=== PATIENT | female | born 1965 | race Two or more races ===

== ENCOUNTER 2024-11-16 19:24 | Emergency (ER) | payer BC, SELFPAY ==
[2024-11-16 19:24] VITALS: BMI 17.9
--- NOTE | 2024-11-16 20:08 | EDNOTE_ITS ---
ED Abdominal Pain RME/HPI General Chief Complaint: Abdominal Pain Stated complaint: ABD PAIN/BLOODY STOOLS Time seen by provider: 11/16/24 20:08 Arrival date/time: 11/16/24 19:24 RME / HPI RME / HPI narrative: Dr. Taylor?s Main ED Evaluation: 59yo female presenting with grossly blood stools x 1 week. Patient has generalized diffuse lower abdominal pain, and also complains of generalized weakness/fatigue. No fever or chills. Reports previous history of similar symptoms and underwent colonoscopy and is s/p polypectomy x2. PMH colonic polyps, vertigo. No DM, HTN, or heart disease. PSH appendectomy. Social history includes occasional alcohol and tobacco use. NKA. Related Data Home Medications ?Medication ?Instructions ?Recorded ?Confirmed No Known Home Medications 01/04/2212/23 Allergies Allergy/AdvReac Type Severity Reaction Status Date / Time bee venom protein (honey bee) Allergy Severe Swelling Verified 11/16/24 19:26 of Lip/Tongue/Throat Review of Systems Review of Systems Systems Reviewed: All systems reviewed, normal except as documented Past Medical History Past Medical History NEUROLOGIC: Negative Neurological Disorders or Seizures CARDIAC: Positive Cardiac Disorders and Hypercholesterolemia (no meds); Negative Congestive Heart Failure RESPIRATORY: Negative Chronic Obstructive Pulmonary Disease (COPD) GASTROINTESTINAL: Negative Gastrointestinal Disorders GENITOURINARY: Negative Genitourinary Disorders or Renal Disease MUSCULOSKELETAL: Negative Musculoskeletal Disorders ENDOCRINE: Negative Endocrine Disorders, Diabetes Mellitus Type 1 or Diabetes Mellitus Type 2 HEMATOLOGIC: Negative Blood Disorders OTHER HISTORY: Positive Chicken Pox and Cancer; Negative Autoimmune Disease, Blood Transfusions or Anesthesia Reactions Surgical History SURGICAL: Positive Ear Surgery (left ear) and Tubal Ligation (ovarian cyst removal) Social History SMOKING STATUS: Former smoker ED Exam Narrative Physical exam: GENERAL APPEARANCE: alert and oriented x 4, chronically-ill appearing, in [id number] distress, complaining of generalized abdominal pain VITALS: All vitals were reviewed and the pulse ox is 98% on room air, which is normal according to my interpretation. HEENT: Normocephalic, atraumatic; pupils equal, round, reactive to light; EOMI; mucous membranes pink, moist; oropharynx clear NECK: Supple LUNGS: CTABL; no wheezes, no rales, no rhonchi HEART: Mildly tachycardic, regular rhythm; normal S1, S2; no murmurs ABDOMEN: non distended; normal BS; soft, generalized tenderness with diffuse guarding BACK: no CVA tenderness EXTREMITIES: atraumatic; no edema NEUROLOGIC: awake; alert and oriented x4; cranial nerves II-XII grossly intact; no focal sensory or motor deficits PSYCHIATRIC: appropriate mood and affect SKIN: warm, dry, normal color; no rashes Course Quality Measures none Orders Category Date Time Status CBC Stat Lab 11/16/24 20:42 Completed Comprehensive Metabolic Panel Stat Lab 11/16/24 20:42 Completed Lipase Stat Lab 11/16/24 20:42 Completed Magnesium Stat Lab 11/16/24 20:42 Completed Partial Thromboplastin Time Stat Lab 11/16/24 20:42 Completed Prothrombin Time with INR Stat Lab 11/16/24 20:42 Completed Morphine Inj Med 11/16/24 20:18 Discontinued 4 mg IVP X1 ONE Ondansetron Inj [Zofran Inj] Med 11/16/24 20:18 Discontinued 4 mg IVP X1 ONE Sodium Chloride 0.9% 1000 ml [Ns] 1,000 ml Med 11/16/24 20:19 Discontinued IV 999 mls/hr Vital Signs Vital signs: Vital Signs Temperature 97.8 F 11/16/24 20:12 Pulse Rate 88 11/16/24 20:12 Respiratory Rate 18 11/16/24 20:12 Blood Pressure 139/83 H 11/16/24 20:12 Pulse Oximetry (%) 98 11/16/24 20:12 Oxygen Delivery Method Room Air 11/16/24 20:12 Abdominal Pain MDM MDM Narrative MDM Narrative:: Scribe Attestation: 11/16/24 - Pura Matthew am scribing for and in the presence of Dr. Taylor. 59yo female presenting with grossly blood stools x 1 week. Patient has generalized diffuse lower abdominal pain, and also complains of generalized weakness/fatigue. No fever or chills. Please see PE findings. Diagnostic tests were ordered. I was notified by the nurse the patient eloped prior to diagnostic tests being completed. Patient data External records reviewed:: [facility] previous records (Per chart review, patient has no previous ED visits or admissions to this facility.) Clinical information provided by:: patient Social determinants that could affect healthcare access:: none Patient has the following chronic illnesses:: none How is presenting disease/condition affected by chronic disease/condition?: no chronic disease Evaluation data The following diagnostics were reviewed and interpreted by me:: lab results Lab and/or radiology exams considered but not ordered:: none Interpretation Summary: See MDM. Medications / Prescriptions Medications or Prescriptions considered but not ordered:: none Medication administrations:: Medication Administration History Discontinued Medications Sodium Chloride (Ns) 1,000 mls @ 999 mls/hr IV .Q1H1M ONE Stop: 11/16/24 21:19 Morphine Sulfate (Morphine Sulf Inj 10 Mg/Ml Vial) 4 mg IVP X1 ONE Stop: 11/16/24 20:19 Ondansetron HCl (Ondansetron Inj 2 Mg/Ml Inj 2 Ml) 4 mg IVP X1 ONE; Protocol Stop: 11/16/24 20:19 Meds were ordered, but not given due to the patient eloping. Consultations Consultation(s) initiated? (list below): No Diagnosis Differential diagnosis abdominal pain: gastroenteritis and other (GI bleed, hemorrhoids) Most likely diagnosis given after review of the tests above:: elopement Admission Indicated Admission indicated?: not indicated Admission Request Was there a request for admission?: No Disposition Plan Disposition Plan: other (specify) (Elopement) Discharge Plan Plan Patient Disposition: Elopement Prescriptions/Referrals Prescriptions/Med Rec: No Action No Known Home Medications Referrals: Niyah Vu MD [Primary Care Provider] - In 1 week Problem List Clinical Impression: Eloped from emergency department, Abdominal pain Patient/Caregiver Discharge Instructions Print Language: Yakut
[2024-11-16 20:12] VITALS: BP 139/83; PULSE 88; RESP 18; TEMP 36.6; O2SAT 98
[2024-11-16 20:54] LABS: Basophils # (Auto) 0.0 Thou/mm3 (0.0-0.2); Basophils % (Auto) 0 % (0-2.5); Eosinophils # (Auto) 0.0 Thou/mm3 (0.0-0.5); Eosinophils % (Auto) 0 % (0-10); Hematocrit 42.9 % (36.0-46.0); Hemoglobin 15.3 g/dL (12.0-16.0); Immature Granulocytes Auto 0.05 Thou/mm3 (0.00-0.00); Lymphocytes # (Auto) 2.4 Thou/mm3 (1.0-4.8); Lymphocytes % (Auto) 26 % (10-50); Mean Corpuscular HGB Conc 35.7 g/dl (31.0-37.0); Mean Corpuscular Hemoglobin 40.2 pg (25.0-35.0); Mean Corpuscular Volume 113 fL (80-100); Monocytes # (Auto) 0.7 Thou/mm3 (0.0-0.8); Monocytes % (Auto) 8 % (0-12); Neutrophils # (Auto) 6.1 Thou/mm3 (1.8-7.7); Neutrophils % (Auto) 66 % (37-80); Nucleated Red Blood Cell # 0.00 Thou/mm3 (0.00-0.00); Nucleated Red Blood Cell % 0 /100 WBC (0); Platelet Count 171 Thou/mm3 (140-440); RDW Standard Deviation 57.0 fL (36.4-46.3); Red Blood Count 3.81 Miln/mm3 (4.00-5.20); White Blood Count 9.4 Thou/mm3 (3.6-11.0)
[2024-11-16 21:06] LABS: INR 1.0 (0.9-1.3); Partial Thromboplastin Time 26.6 Seconds (22.0-36.0); Prothrombin Time 10.7 Seconds (9.0-12.2)
[2024-11-16 21:13] LABS: Alanine Aminotransferase 19 U/L (10-49); Albumin, Serum 4.1 gm/dL (3.4-4.8); Albumin/Globulin Ratio 1.9 (1.2-2.2); Alkaline Phosphatase 102 U/L (46-116); Anion Gap 16 (7-16); Aspartate Amino Transferase 22 U/L (0-34); BUN/Creatinine Ratio 10 Ratio (12-20); Bilirubin,Total 0.7 mg/dL (0.3-1.2); Blood Urea Nitrogen 7 mg/dL (9-23); Calcium 9.9 mg/dL (8.3-10.6); Calcium (Corrected) 9.9 mg/dL (8.5-10.1); Carbon Dioxide 23.0 mMol/L (20.0-31.0); Chloride 96 mMol/L (98-107); Creatinine (Component) 0.7 mg/dL (0.6-1.3); Estimated Creatinine Clearance 66.1 mL/min (>60); Globulin 2.2 gm/dL (2.3-3.5); Glucose 107 mg/dL (74-106); Lipase 23 U/L (12-53); Magnesium 1.6 mg/dL (1.6-2.6); Osmolality,Calculated 268 (275-295); Potassium 3.9 mMol/L (3.4-5.1); Sodium 135 mMol/L (136-145); Total Protein 6.3 gm/dL (5.7-8.2); eGFR > 60 See Note
--- NOTE | 2024-11-16 23:15 | PC.NURSE ---
CALLED PT OUTSIDE OF AND IN ER LOBBY AND NO ANSWER
--- NOTE | 2024-11-16 23:20 | PC.NURSE ---
CALLED PT IN ER LOBBY AND OUTSIDE OF AND NO ANSWER.
--- NOTE | 2024-11-16 23:24 | PC.NURSE ---
CALLED PT IN ER LOBBY AND OUTSIDE OF ER AND NO ANSWER.
== END 2024-11-16 23:26 | disposition left against medical advice (07) ==
LOC: SERX 20:37
PROVIDERS: Emergency Provider Emergency Medicine; PCP Family Medicine
DX: R10.84 Generalized abdominal pain (principal); Z53.29 Procedure and treatment not carried out because of patient's decision for other reasons
CPT/HCPCS: 36415; 80053; 80307; 81001; 83690; 83735; 85025; 85610; 85730; 99283

== ENCOUNTER 2024-11-17 10:09 | Inpatient (IN) | payer BC, SELFPAY ==
[2024-11-17 10:53] VITALS: BP 101/64; PULSE 100; RESP 16; TEMP 36.8; O2SAT 98; BMI 17.9
--- NOTE | 2024-11-17 11:08 | XR_ITS ---
Examination: CT abdomen with intravenous contrast CT pelvis with intravenous contrast 2-D coronal reconstructions 2-D sagittal reconstructions Date and time of exam:November 17 thousand 25, 1607 hours INDICATIONS: Blood in the stool today rectal bleeding. CTDI: vol (mGy) 5.51 DLP: (mGycm) 262 Technique: Multiple axial sections of the abdomen and pelvis have been obtained. 64 slice high-resolution scanner used. 3 mm axial sections have been obtained, post intravenous injection 60 cc [id number] 2-D sagittal, coronal reconstructions obtained. Low dose protocols were performed. One or more of the following dose reduction techniques were used; automated exposure control, adjustment of the mA and/or KV according to patient size, use of iterative reconstruction technique. Findings: Diffuse fatty infiltration throughout the liver with focal areas of fatty sparing No gallstones Splenic calcifications No pancreatic or adrenal mass Severe scarring left kidney, no renal or ureteral calculi, no hydronephrosis. Heavy abdominal aortic calcification. No pericecal inflammatory change Wall thickening involving the entire colon, especially the descending colon, nonspecific colitis pattern. Atrophic uterus No pelvic mass Contracted urinary bladder Moderate osteopenia IMPRESSION: Severe scarring left kidney, no hydronephrosis Wall thickening, nonspecific colitis, involving the entire colon but especially descending colon,, differential would include ulcerative colitis, Crohn's disease
--- NOTE | 2024-11-17 11:10 | PD.EDRME ---
Rapid Medical Screening Exam RME Arrival date/time: 11/17/24 10:09 59-year-old female presents to the Emergency Department for complaints of rectal bleeding and abdominal pain Chief Complaint: Abdominal Pain Time Seen by Provider: 11/17/24 11:08 Vital signs: Vital Signs Temperature 98.3 F 11/17/24 10:53 Pulse Rate 100 11/17/24 10:53 Respiratory Rate 16 11/17/24 10:53 Blood Pressure 101/64 11/17/24 10:53 Pulse Oximetry (%) 98 11/17/24 10:53 Oxygen Delivery Method Room Air 11/17/24 10:53
[2024-11-17 11:26] LABS: Basophils # (Auto) 0.0 Thou/mm3 (0.0-0.2); Basophils % (Auto) 0 % (0-2.5); Eosinophils # (Auto) 0.0 Thou/mm3 (0.0-0.5); Eosinophils % (Auto) 0 % (0-10); Hematocrit 40.9 % (36.0-46.0); Hemoglobin 14.7 g/dL (12.0-16.0); Immature Granulocytes Auto 0.04 Thou/mm3 (0.00-0.00); Lymphocytes # (Auto) 2.0 Thou/mm3 (1.0-4.8); Lymphocytes % (Auto) 26 % (10-50); Mean Corpuscular HGB Conc 35.9 g/dl (31.0-37.0); Mean Corpuscular Hemoglobin 40.4 pg (25.0-35.0); Mean Corpuscular Volume 112 fL (80-100); Monocytes # (Auto) 0.6 Thou/mm3 (0.0-0.8); Monocytes % (Auto) 8 % (0-12); Neutrophils # (Auto) 5.1 Thou/mm3 (1.8-7.7); Neutrophils % (Auto) 66 % (37-80); Nucleated Red Blood Cell # 0.00 Thou/mm3 (0.00-0.00); Nucleated Red Blood Cell % 0 /100 WBC (0); Platelet Count 153 Thou/mm3 (140-440); RDW Standard Deviation 55.9 fL (36.4-46.3); Red Blood Count 3.64 Miln/mm3 (4.00-5.20); White Blood Count 7.7 Thou/mm3 (3.6-11.0)
[2024-11-17 12:12] LABS: Collection Type, Urine Clean Catch
[2024-11-17 12:29] LABS: Bacteria,Urine 1+; Bilirubin,Urine 1+ (Negative); Blood,Urine Negative (Negative); Clarity,Urine Turbid (Clear/Hazy); Color,Urine Drk-Yellow (Lt Yel-Yel); Culture Indicated,Urine Contaminated; Glucose, Urine Negative (Negative); Ketones,Urine 2+ (Negative); Leukocyte Esterase,Urine Positive (Negative); Nitrite,Urine Negative (Negative); PH,Urine 6.0 (5.0-7.0); Protein,Urine 1+ (Neg - Trace); RBC,Urine 22 /hpf (0-3); Specific Gravity,Urine 1.033 (1.001-1.035); Squamous Epithelial Cell,Urine 43 /hpf (0-5); Urobilinogen,Urine 8.0 mg/dL (0.0-1.0); WBC,Urine 78 /hpf (0-5)
[2024-11-17 15:34] LABS: Path Review Blood Smear Sent to Pathologist
[2024-11-17] MEDS: SODIUM CHLORIDE 0.9% 1000 ML 1,000 ML 999 ML IV (20:15)
[2024-11-17] MEDS: MORPHINE SULF INJ 10 MG/ML VIAL 4 MG IVP (20:16)
[2024-11-17] MEDS: LEVOFLOXACIN/D5W 500 MG IVPB 500 MG/100 ML BAG 100 MG IV (20:17)
--- NOTE | 2024-11-17 20:36 | PD.IMCONS ---
HPI Data of Consult Primary Care Provider: Sakina Seth PA-C Consult Narrative Reason for consult: Rectal bleeding abnormal CT AP History of present illness: 59 years old female asked to evaluate in the emergency room with multiple episodes of rectal bleeding as well as abnormal CT scan of the abdomen pelvis showing diffuse colitis Patient has at least a 1 week history of multiple stools with blood and now blood and mucus and not much stool Colonoscopy in the past in 2021 that removal of colonic polyps but no history of any inflammatory bowel disease cc:: cc: Review of Systems Review of Systems Systems Reviewed: All systems reviewed, normal except as documented Meds Home Medications and Allergies Allergies Allergy/AdvReac Type Severity Reaction Status Date / Time bee venom protein (honey bee) Allergy Severe Swelling Verified 11/19/24 19:59 of Lip/Tongue/Throat Exam Vital Signs Temp Pulse Resp BP Pulse Ox O2 Del Method 98.3 F 100 16 101/64 98 Room Air 11/17/24 10:53 11/17/24 10:53 11/17/24 10:53 11/17/24 10:53 11/17/24 10:53 11/17/24 10:53 Constitutional Comments: Chronically ill-appearing Routine Respiratory Exam Comments: Normal to auscultation Routine Abdominal Exam Comments: Soft nontender Results Labs 11/20/24 05:25 11/20/24 05:25 Labs: Short CBC 11/17/24 Range/Units 11:12 WBC 7.7 (3.6-11.0) Thou/mm3 Hgb 14.7 (12.0-16.0) g/dL Hct 40.9 (36.0-46.0) % Plt Count 153 (140-440) Thou/mm3 Urine 11/17/24 Range/Units 12:00 Urine Color Drk-Yellow A (Lt Yel-Yel) Urine Clarity Turbid A (Clear/Hazy) Urine pH 6.0 (5.0-7.0) Ur Specific [place] 1.033 (1.001-1.035) Urine Protein 1+ A (Neg - Trace) Urine Glucose (UA) Negative (Negative) Assessment and Plan Additional Assessment & Plan Additional Plan: # Rectal bleeding differential diagnosis include infectious enterocolitis versus inflammatory bowel disease or ischemic colitis Plan Stool for C. difficile Culture and sensitivity for stool Gram stain Fecal calprotectin Giardia antigen ANCA antibody CRP If negative Will consider doing a fiberoptic colonoscopy Can give antibiotic coverage prophylactically pending stool culture and sensitivity Thank you very much for the opportunity to participate in the care of this patient
--- NOTE | 2024-11-17 21:20 | ESHP_ITS ---
<Statement entered by Jeffrey Magallon MD - 11/18/24 07:46> I have discussed and was present for the essential components of the history, physical examination, diagnosis, and treatment plan with the resident. I agree with the patient's care as documented by the resident and amended herein by me. Jeffrey Magallon MD FACP. Documentation for date of: 11/17/24 HPI History of Present Illness History of present illness: 59-year-old female with past medical history of colonic polyps, diverticulosis, hemorrhoids, and vertigo, presenting with 1 week of rectal bleeding and diffuse lower abdominal pain. She reports onset last Saturday when she awoke at 2:30 AM with severe cramping abdominal pain, followed by multiple bowel movements with bright red blood and large clots. That first day she had ~4 episodes of bloody stools. Since then, she has continued to pass intermittent blood and mucus, though less volume, with ongoing cramping abdominal pain primarily in the left lower quadrant radiating across the lower abdomen and to her back. Pain is worsened with bowel movements and associated with nausea and vomiting. Poor oral intake, tolerating only small sips of water/Gatorade. Denies fever or chills, but reports clamminess. No syncope; has baseline vertigo but describes current nausea/vomiting as different from her usual vertigo episodes. She previously underwent colonoscopy in 2020 and 2021, which showed multiple tubular adenomas, diverticulosis, and hemorrhoids with polypectomy performed. She was advised to repeat surveillance but has not had a colonoscopy since. In the ED, she was hemodynamically stable, afebrile, HR 100, BP 101/64, O? sat 98% RA. Hgb stable at 14.[address] abdomen/pelvis showed diffuse colitis, especially descending colon, with differential of ulcerative colitis vs Crohn?s. UA was contaminated; patient denies urinary symptoms. Electrolytes notable for Mg 1.6 requiring repletion. GI was consulted in ED. ROS: * Constitutional: +fatigue/weakness, no fever/chills. * GI: +abdominal pain, nausea, vomiting, hematochezia, constipation alternating with loose stools. No melena. * : Denies dysuria, frequency, hematuria. * Neuro: +vertigo (baseline). No new focal deficits. * CV: No chest pain, palpitations, syncope. * Resp: No SOB, cough. * MSK: Low back aching. * Heme: Prior polyps, denies history of anemia or transfusion. PMH: * Colonic polyps (tubular adenomas, hyperplastic) * Diverticulosis * Hemorrhoids * Vertigo * Hypercholesterolemia (not on meds) * Remote history of ?cancer? (unclear type, needs clarification) PSH: * Appendectomy * Tubal ligation / ovarian cyst removal * Left ear surgery Meds: Tylenol PRN, occasional Tums/Rolaids. No chronic meds. Allergies: NKDA. Social History: * Tobacco: Current smoker, 1 pack/day for 15?20 years. * Alcohol: Previously daily beer; none in past 2 weeks. * Drugs: Marijuana gummies occasionally for nausea/vertigo. * Lives with son; brother currently staying temporarily. Family History: * Father: pancreatic cancer * Mother: glioblastoma * Grandfather: lung cancer * Grandmother: [place] Exam Vital Signs Temp Pulse Resp BP Pulse Ox O2 Del Method 98.3 F 100 16 101/64 98 Room Air 11/17/24 10:53 11/17/24 10:53 11/17/24 10:53 11/17/24 10:53 11/17/24 10:53 11/17/24 10:53 Narrative Exam General: Chronically ill appearing, mildly distressed, alert & oriented x4. HEENT: NC/AT, PERRL, EOMI, MMM. Neck: Supple. CV: Tachycardic, regular, no murmurs. Resp: CTABL, no wheezes/rales/rhonchi. Abdomen: Soft, nondistended; diffuse lower abdominal tenderness, LLQ > RLQ, with diffuse guarding. Normal bowel sounds. No rebound. Back: No CVA tenderness. Ext: No edema. Neuro: CN II?XII intact, no focal deficits. Skin: Warm, dry, no rashes. Results: Labs 11/17/24 11:12 Labs: Short CBC 11/17/24 Range/Units 11:12 WBC 7.7 (3.6-11.0) Thou/mm3 Hgb 14.7 (12.0-16.0) g/dL Hct 40.9 (36.0-46.0) % Plt Count 153 (140-440) Thou/mm3 Urine 11/17/24 Range/Units 12:00 Urine Color Drk-Yellow A (Lt Yel-Yel) Urine Clarity Turbid A (Clear/Hazy) Urine pH 6.0 (5.0-7.0) Ur Specific [place] 1.033 (1.001-1.035) Urine Protein 1+ A (Neg - Trace) Urine Glucose (UA) Negative (Negative) Quality Measures Quality Measures VTE prophylaxis Medications Home Medications and Allergies Home Medications ?Medication ?Instructions ?Recorded ?Confirmed ?Type No Known Home Medications 01/04/2212/23 History Allergies Allergy/AdvReac Type Severity Reaction Status Date / Time bee venom protein (honey bee) Allergy Severe Swelling Verified 11/17/24 10:12 of Lip/Tongue/Throat Visit Medications Discontinued Medications Metronidazole (Flagyl 500 Mg Iv) 500 mg in 100 mls @ 100 mls/hr IV X1 ONE Stop: 11/17/24 19:30 Levofloxacin/Dextrose (Levaquin Ivpb) 500 mg in 100 mls @ 100 mls/hr IV X1 ONE Stop: 11/17/24 19:31 Last Admin: 11/17/24 20:17 Dose: 100 mls/hr Sodium Chloride (Ns) 1,000 mls @ 999 mls/hr IV .Q1H1M ONE Stop: 11/17/24 19:33 Last Admin: 11/17/24 20:15 Dose: 999 mls/hr Morphine Sulfate (Morphine Sulf Inj 10 Mg/Ml Vial) 4 mg IVP X1 ONE Stop: 11/17/24 18:52 Last Admin: 11/17/24 20:16 Dose: 4 mg Assessment & Plan Plan 59-year-old female with h/o polyps, diverticulosis, hemorrhoids, presenting with 1 week hematochezia, abdominal pain, and CT showing diffuse colitis. Hemodynamically stable, Hgb preserved. Differential: infectious colitis (including C. diff), inflammatory bowel disease (UC vs Crohn?s), diverticular bleed, hemorrhoids, vs neoplasm. # Hematochezia / Diffuse Colitis Active rectal bleeding with abdominal pain, stable Hgb. CT showing diffuse colitis. DDx: IBD flare, infectious colitis (C. diff), diverticular bleed, hemorrhoids, malignancy. Prior colonoscopies notable for multiple tubular adenomas, diverticulosis, hemorrhoids. Plan: * GI consult (already aware) * Regular diet for now; will place NPO if C. diff negative and GI proceeds with colonoscopy * Repeat CBC in AM * Type & Screen * C. diff PCR/toxin, stool cultures, fecal leukocytes, O&P * IV fluids (NS @ 75 mL/hr) * Avoid NSAIDs/anticoagulants * Strict I/O, monitor stool output/bleeding # Electrolyte abnormality (Hypomagnesemia) Mg 1.6. Plan: * IV Mg sulfate repletion * Recheck Mg level in AM # Macrocytosis (MCV 112, MCH 40) Likely chronic alcohol use vs B12/folate deficiency. 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 Plan: * Ondansetron PRN # Vertigo (chronic) Stable, baseline. Plan: * Continue supportive care * Order PRN meclizine if symptomatic * Head of bed elevation # Hypercholesterolemia Not on therapy. Plan: * Lipid panel a.m. * Outpatient follow-up Health maintenance: VTE prophylaxis: SCDs only (active bleeding) GI prophylaxis: PPI as above Lines: PIV Diet: Regular Code status: DNR (confirmed with patient) ----- Plan discussed with attending physician Dr. Sherita Skinner MD PGY-1 Internal Medicine
[2024-11-17] MEDS: metroNIDAZOLE/NS 500 MG IVPB 500 MG/100 ML BAG 100 MG IV (21:43)
[2024-11-17] MEDS: SODIUM CHLORIDE 0.9% 1000 ML 1,000 ML 75 ML IV (21:44)
[2024-11-17] MEDS: Magnesium Sulfate 2 GM Ivpb 2 GM/50 ML BAG IV (21:46)
[2024-11-17 21:48] LABS: C-Reactive Protein 1.3 mg/dL (0.0-0.9)
[2024-11-17 21:49] LABS: Sed Rate (ESR) < 1 mm/hr (0-30)
[2024-11-17 22:04] VITALS: BP 138/88; PULSE 83; RESP 20; TEMP 36.1; O2SAT 98
[2024-11-17 22:37] VITALS: O2SAT 96
[2024-11-17 23:44] VITALS: PULSE 74; RESP 16; RESP 95
[2024-11-17 23:45] LABS: Folate 3.70 ng/mL (>5.38); Vitamin B12 235 pg/mL (211-911)
[2024-11-18] VITALS (10 sets, daily range): BP systolic 119–151; BP diastolic 71–91; PULSE 65–98; RESP 16–98; TEMP 36–36.7; O2SAT 72–100; BMI 19.4
[2024-11-18] MEDS: ONDANSETRON INJ 2 MG/ML INJ 2 ML 4 MG IVP ×2 (03:12→17:53)
[2024-11-18] MEDS: HYDROcodone/APAP 5/325 TABLET 1 TAB PO ×2 (03:13→17:52)
--- NOTE | 2024-11-18 04:12 | PC.NURSE ---
Patient arrived in med surg unit around 02:38 via gurney. Assisted patient to bed, provided safety and comfort.
[2024-11-18] MEDS: NICOTINE PATCH 21 MG/24 HR PATCH.TD24 TOP (09:30)
[2024-11-18] MEDS: FOLIC ACID 1 MG TABLET PO (09:30)
[2024-11-18] MEDS: metroNIDAZOLE/NS 500 MG IVPB 500 MG/100 ML BAG 200 MG IV ×2 (10:10→21:46)
[2024-11-18] MEDS: CIPROFLOXACIN/D5w 400 MG IVPB 400 MG/200 ML BAG 200 MG IV ×2 (10:10→20:27)
[2024-11-18] MEDS: FOLIC ACID INJ 1 MG/0.2 ML IVP (10:10)
[2024-11-18 10:40] LABS: Basophils # (Auto) 0.0 Thou/mm3 (0.0-0.2); Basophils % (Auto) 0 % (0-2.5); Eosinophils # (Auto) 0.0 Thou/mm3 (0.0-0.5); Eosinophils % (Auto) 1 % (0-10); Hematocrit 37.8 % (36.0-46.0); Hemoglobin 13.5 g/dL (12.0-16.0); Immature Granulocytes Auto 0.02 Thou/mm3 (0.00-0.00); Lymphocytes # (Auto) 1.4 Thou/mm3 (1.0-4.8); Lymphocytes % (Auto) 24 % (10-50); Mean Corpuscular HGB Conc 35.7 g/dl (31.0-37.0); Mean Corpuscular Hemoglobin 40.9 pg (25.0-35.0); Mean Corpuscular Volume 115 fL (80-100); Monocytes # (Auto) 0.5 Thou/mm3 (0.0-0.8); Monocytes % (Auto) 9 % (0-12); Neutrophils # (Auto) 3.9 Thou/mm3 (1.8-7.7); Neutrophils % (Auto) 67 % (37-80); Nucleated Red Blood Cell # 0.00 Thou/mm3 (0.00-0.00); Nucleated Red Blood Cell % 0 /100 WBC (0); Platelet Count 94 Thou/mm3 (140-440); RDW Standard Deviation 55.9 fL (36.4-46.3); Red Blood Count 3.30 Miln/mm3 (4.00-5.20); White Blood Count 5.8 Thou/mm3 (3.6-11.0)
[2024-11-18 10:59] LABS: INR 1.0 (0.9-1.3); Partial Thromboplastin Time 23.4 Seconds (22.0-36.0); Prothrombin Time 11.4 Seconds (9.0-12.2)
[2024-11-18 11:15] LABS: Anion Gap 12 (7-16); BUN/Creatinine Ratio 10 Ratio (12-20); Blood Urea Nitrogen < 5 mg/dL (9-23); Calcium 8.5 mg/dL (8.3-10.6); Carbon Dioxide 23.9 mMol/L (20.0-31.0); Cardiac Risk Estimate 2.2 RATIO (3.7-5.6); Chloride 103 mMol/L (98-107); Cholesterol 130 mg/dL (132-200); Creatinine (Component) 0.5 mg/dL (0.6-1.3); Estimated Creatinine Clearance 100.2 mL/min (>60); Glucose 95 mg/dL (74-106); HDL Cholesterol 59 mg/dL (40-60); LDL Cholesterol,Calculated 54 mg/dL (0-130); Magnesium 2.0 mg/dL (1.6-2.6); Osmolality,Calculated 274 (275-295); Phosphorous 3.4 mg/dL (2.4-5.1); Potassium 3.3 mMol/L (3.4-5.1); Sodium 139 mMol/L (136-145); Thyroid Stimulating Hormone 2.86 uIU/mL (0.55-4.78); Triglycerides 86 mg/dL (30-150); eGFR > 60 See Note
[2024-11-18 11:36] LABS: Collection Type, Urine Clean Catch
--- NOTE | 2024-11-18 11:41 | PC.SS ---
Cindy Mantilla is a 59-year-old female admitted to Med Surg for Rectal Bleeding, ABD Pain. SS conducted bedside contact with the patient to complete initial assessment and to discuss discharge planning. Role and reason explained. Patient confirmed demographic information. Patient identifies Brother Alexis Reyes [phone] as her surrogate decision maker. Pt states she is able to complete all ADL?s independently. No need for any source of DME. Pts PCP is Dr. Seth. Pharmacy of choice is [facility]. Discharge options discussed and the pt wishes to return home.? Family will provide transportation upon DC. No further intervention required at this time, social studies teacher would be available to address any further concerns. DC Plan: Home Contact: Alexis Carrasco Address: Confirmed on face sheet PCP: Rolo
[2024-11-18 11:53] LABS: Bacteria,Urine Rare; Bilirubin,Urine Negative (Negative); Blood,Urine Negative (Negative); Clarity,Urine Clear (Clear/Hazy); Color,Urine Lt-Yellow (Lt Yel-Yel); Glucose, Urine Negative (Negative); Ketones,Urine Trace (Negative); Leukocyte Esterase,Urine Negative (Negative); Nitrite,Urine Negative (Negative); PH,Urine 6.5 (5.0-7.0); Protein,Urine Negative (Neg - Trace); RBC,Urine < 1 /hpf (0-3); Specific Gravity,Urine 1.006 (1.001-1.035); Squamous Epithelial Cell,Urine 1 /hpf (0-5); Urobilinogen,Urine 2.0 mg/dL (0.0-1.0); WBC,Urine 1 /hpf (0-5)
[2024-11-18 14:04] LABS: Stool for WBCs Negative (Negative)
[2024-11-18] MEDS: POTASSIUM CHLORIDE 10% 20 MEQ/15 ML UDC 40 MEQ PO (14:16)
[2024-11-18] MEDS: POTASSIUM CHLORIDE 10% 20 MEQ/15 ML UDC PO (14:17)
--- NOTE | 2024-11-18 14:27 | PC.SS ---
Rounding: Pending GI/ID reccs, DC plan home
--- NOTE | 2024-11-18 16:31 | ESPR_ITS ---
<Statement entered by Luis Eduardo Liang MD - 11/19/24 13:21> Patient was seen and examined at bedside. I agree on the assessment and plan on this note as documented by resident Елена Lara DO PGY1. 59-year-old female with past medical history as below admitted overnight for diffuse colitis abdominal pain, GI consulted for further workup. Patient started on Cipro and Flagyl, will obtain blood cultures, stool studies ordered by gastroenterology will follow. Patient will likely undergo colonoscopy at the discretion of gastroenterology as patient had complained of lower GI bleed, has had colonoscopy in the past which showed multiple polyps and significant large internal/external hemorrhoids. Last bloody bowel movement 4 days prior to presentation. Disposition med/tele for further workup. Case discussed with attending Dr. Annette Liang MD PGY-2 <Statement entered by Delma Bryant MD - 11/19/24 08:46> I attest that I was physically present for the evaluation, physical examination, lab and imaging review of the patient with the residents. I discussed the case with the residents and agree with the findings and plans of care as documented below. Delma Bryant MD Documentation for date of: 11/18/24 Subjective Subjective Interval history: Patient admitted overnight. Patient seen and examined at bedside. Patient reports that she had about 2-3 bloody bowel movements a day since 11/09 to 11/13 with associated lower abdominal pain that has been increasing since, prompting current ED visit. Patient previously visited ED 11/16 however due to waiting 6 hours and was in extreme pain decided to go home and lay down. Patient reports that she has not had a regular bowel movement since prior to bloody bowel movements, reporting 1-2 very loose however not diarrhea bowel movements a day after bleeding episode with significant abdominal pain. Reports had 2 colonoscopies done in 2020 and 2021 with many polyps removed however has not followed up since. Denies any autoimmune history such as lupus or rheumatoid arthritis. Overnight GI consulted and stool studies ordered. Plans for colonoscopy after stool studies result. Per GI, continue regular diet until stool studies result and n.p.o. after. Hemoglobin stable at 13.5, 15.4 on admission, found to be macrocytic with low folate. Folate 1 mg IVP x1 and start p.o. folate 1 mg daily. Started metronidazole and ciprofloxacin. Follow-up blood cultures. Started nicotine patch 21 mg. Exam Vital Signs Temp Pulse Resp BP Pulse Ox O2 Del Method 97.0 F 68 17 137/83 H 98 Room Air 11/18/24 12:00 11/18/24 12:00 11/18/24 12:00 11/18/24 12:00 11/18/24 12:00 11/18/24 12:00 Narrative Exam GENERAL: AOx3, no acute distress HEENT: NC/AT, mucous membranes dry, bilateral sclera anicteric CARDIOVASCULAR: regular rate and rhythm, S1/S2 present, no murmurs appreciated PULMONARY: clear to auscultation bilaterally, no rales/rhonchi/wheezes ABDOMINAL: soft, non-distended, no rebound/guarding, bowel sounds present, mild diffuse abdominal tenderness, diffuse guarding to deep palpation greatest at LLQ EXTREMITIES: no peripheral edema SKIN: warm and dry, intact, no rashes, brusing on b/l forearms NEURO: CN II-XII grossly intact, no focal deficits, alert, following commands Objective Labs 11/18/24 09:35 11/18/24 09:35 Labs: Laboratory Results - last 24 hr 11/17/24 11/17/24 11/18/24 21:01 23:03 09:35 WBC 5.8 RBC 3.30 L Hgb 13.5 Hct 37.8 MCV 115 H MCH 40.9 H MCHC 35.7 RDW Std Deviation 55.9 H Plt Count 94 L D Neut % (Auto) 67 Lymph % (Auto) 24 [place] % (Auto) 9 Eos % (Auto) 1 Baso % (Auto) 0 Neut # (Auto) 3.9 Lymph # (Auto) 1.4 [place] # (Auto) 0.5 Eos # (Auto) 0.0 Baso # (Auto) 0.0 Immature Gran # (Auto) 0.02 H Absolute Nucleated RBC 0.00 Immature Gran % 0 Nucleated RBC % 0 ESR < 1 PT 11.4 INR 1.0 APTT 23.4 Sodium 139 Potassium 3.3 L D Chloride 103 Carbon Dioxide 23.9 Anion Gap 12 BUN < 5 L Creatinine 0.5 L Estim Creat Clear Calc 100.2 eGFR > 60 BUN/Creatinine Ratio 10 L Glucose 95 Calculated Osmolality 274 L Calcium 8.5 Phosphorus 3.4 Magnesium 2.0 C-Reactive Prot, Quant 1.3 H Triglycerides 86 Cholesterol 130 L LDL Cholesterol, Calc 54 HDL Cholesterol 59 Cholesterol/HDL Ratio 2.2 L Vitamin B12 235 Folate 3.70 L TSH 2.86 Ur Collection Type Urine Color Urine Clarity Urine pH Ur Specific [place] Urine Protein Urine Glucose (UA) Urine Ketones Urine Blood Urine Nitrite Urine Bilirubin Urine Urobilinogen (Auto) Ur Leukocyte Esterase Urine RBC Urine WBC Ur Squamous Epith Cells Urine Bacteria Stool for White Cells Stl C. diff Tox B Gene Blood Type Antibody Screen Blood Bank Wristband ID 11/18/24 11/18/24 11/18/24 11:09 11:40 12:50 WBC RBC Hgb Hct MCV MCH MCHC RDW Std Deviation Plt Count Neut % (Auto) Lymph % (Auto) [place] % (Auto) Eos % (Auto) Baso % (Auto) Neut # (Auto) Lymph # (Auto) [place] # (Auto) Eos # (Auto) Baso # (Auto) Immature Gran # (Auto) Absolute Nucleated RBC Immature Gran % Nucleated RBC % ESR PT INR APTT Sodium Potassium Chloride Carbon Dioxide Anion Gap BUN Creatinine Estim Creat Clear Calc eGFR BUN/Creatinine Ratio Glucose Calculated Osmolality Calcium Phosphorus Magnesium C-Reactive Prot, Quant Triglycerides Cholesterol LDL Cholesterol, Calc HDL Cholesterol Cholesterol/HDL Ratio Vitamin B12 Folate TSH Ur Collection Type Clean Catch Urine Color Lt-Yellow Urine Clarity Clear Urine pH 6.5 Ur Specific [place] 1.006 Urine Protein Negative Urine Glucose (UA) Negative Urine Ketones Trace Urine Blood Negative Urine Nitrite Negative Urine Bilirubin Negative Urine Urobilinogen (Auto) 2.0 Ur Leukocyte Esterase Negative Urine RBC < 1 Urine WBC 1 Ur Squamous Epith Cells 1 Urine Bacteria Rare Stool for White Cells Negative Stl C. diff Tox B Gene Cancelled Blood Type O Positive Antibody Screen NEGATIVE Blood Bank Wristband ID Yes Quality Measures Quality Measures VTE prophylaxis Assessment & Plan Assessment Current Active Medications: Generic Name Dose Route Start Last Admin Trade Name Freq PRN Reason Stop Dose Admin Acetaminophen 650 mg 11/17/24 21:14 Acetaminophen 325 Mg Tablet PO 12/17/24 21:13 Q6H PRN Fever >100.4 or pain 1-3 Hydrocodone Bitart/Acetaminophen 1 tab 11/17/24 21:14 11/18/24 03:13 Hydrocodone/Apap 5/325 Tablet PO 11/22/24 21:13 1 tab Q4HR PRN Administration PAIN SCALE 4-6 (Moderate Folic Acid 1 mg 11/18/24 09:00 11/18/24 09:30 Folic Acid 1 Mg Tablet PO 12/18/24 08:59 1 mg QDAY RODERICK Administration Metronidazole 500 mg in 100 mls @ 200 mls/hr 11/18/24 09:50 11/18/24 13:46 Flagyl 500 Mg Iv IV 11/25/24 09:49 Not Given Q8HR RODERICK Ciprofloxacin/Dextrose 400 mg in 200 mls @ 200 mls/hr 11/18/24 09:50 11/18/24 10:10 Cipro Ivpb IV 11/25/24 09:49 200 mls/hr Q12HR RODERICK Administration Nicotine 21 mg 11/18/24 09:00 11/18/24 09:30 Nicotine Patch 21 Mg/24 Hr Patch.Td24 TOP 12/18/24 08:59 21 mg QDAY RODERICK Administration Ondansetron HCl 4 mg 11/17/24 21:14 11/18/24 03:12 Ondansetron Inj 2 Mg/Ml Inj 2 Ml IVP 12/17/24 21:13 4 mg Q6H PRN Administration NAUSEA OR VOMITING Protocol Pantoprazole Sodium 40 mg 11/18/24 09:00 11/18/24 09:30 Pantoprazole Inj 40 Mg Vial IVP 12/18/24 08:59 40 mg QDAY RODERICK Administration Plan Cindy Mantilla is a 59F pmhx significant for polyps, diverticulosis, hemorrhoids, presented to [facility] ED on 11/17 for a few days of hematochezia and abdominal pain, admitted for diffuse colitis and c/f for GIB. #Abdominal pain #Diffuse colitis #c/f for GIB, upper vs lower #Hematochezia States had bloody bowel movements from 11/09-11/13 and increasing lower abdominal pain prompting ED visit. Hgb 15.3 on admission. Reports melena in 2020 with colonoscopy and repeat colonoscopy in 2021 with multiple polyps removed however has not followed up since. Ddx: infectious colitis (including C. diff), IBD, diverticular bleed, hemorrhoids, neoplasm. 12/2021 colonoscopy: Numerous polyps throughout colon that were removed and retrieved, large internal/external hemorrhoids, moderate diffuse diverticulosis, showing early hyperplastic polyps, tubular adenoma, negative for high-grade dysplasia, hyperplastic polyps s/p levofloxacin (11/17) Plan: - GI consulted, recs appreciated: plan for colonoscopy after stool studies result - Stool studies ordered Cdiff PCR, stool culture, calprotectin, giardia, ANCA - Regular diet until stool studies return, NPO after - Ciprofloxacin (11/18- and metronidazole (11/17- - Pain regimen: Tylenol and [place] 5 - Stop IVF as patient is tolerating oral diet - CTM abdominal pain - CTM CBC #Macrocytosis Hgb on admission 15.3 downtrended to 13.5. MCV 113->115. Folate low 3.7 and B12 wnl 235. s/p folate 1 mg IVP Plan: - Start folate 1 mg PO QD - CTM CBC - Recommend outpatient follow up for further workup and monitor #Nicotine dependence Reports smoking 1 pack per day for the past 15-20 years Plan: - Nicotine patch 21 mg QD - Recommend smoking cessation #Electrolyte abnormalities #Hypokalemia #Hypomagnesemia, resolved Admission Mg 1.6. K 3.3 Plan: - Replete and recheck as needed Hospital management: Lines: PIV Diet: Regular Bowel: hold iso GIB GI prophylaxis: IV pantoprazole 40 mg QD DVT prophylaxis: hold iso GIB Disposition: med tele for GIB workup CODE STATUS: DNR Plan of care discussed with attending Dr. Bryant, and PGY-2 Dr. Liang. Елена Lara, DO PGY-1 Internal Medicine
[2024-11-18 16:41] LABS: Campylobacter PCR Negative (Negative); Salmonella Species PCR Negative (Negative); Shiga Toxin PCR Negative (Negative); Shigella Species PCR Negative (Negative)
[2024-11-18] MEDS: NA SU/NAHCO3/KC/PEG (Golytely) 4,000 ML BTL 4000 ML PO (20:26)
[2024-11-19] VITALS (19 sets, daily range): BP systolic 112–172; BP diastolic 65–106; PULSE 68–89; RESP 12–99; TEMP 36.2–36.8; O2SAT 95–100
--- NOTE | 2024-11-19 05:19 | PC.NURSE ---
called laboratory miller re blood culture ordered. clean room technician will check order.
[2024-11-19] MEDS: metroNIDAZOLE/NS 500 MG IVPB 500 MG/100 ML BAG 200 MG IV ×3 (06:22→22:32)
[2024-11-19] MEDS: HYDROcodone/APAP 5/325 TABLET 1 TAB PO ×2 (07:16→22:48)
[2024-11-19] MEDS: ONDANSETRON INJ 2 MG/ML INJ 2 ML 4 MG IVP (07:21)
[2024-11-19] MEDS: FOLIC ACID 1 MG TABLET PO (08:40)
[2024-11-19] MEDS: CIPROFLOXACIN/D5w 400 MG IVPB 400 MG/200 ML BAG 200 MG IV ×2 (08:41→21:08)
[2024-11-19 10:23] LABS: Basophils # (Auto) 0.0 Thou/mm3 (0.0-0.2); Basophils % (Auto) 0 % (0-2.5); Eosinophils # (Auto) 0.0 Thou/mm3 (0.0-0.5); Eosinophils % (Auto) 0 % (0-10); Hematocrit 32.7 % (36.0-46.0); Hemoglobin 11.4 g/dL (12.0-16.0); Immature Granulocytes Auto 0.02 Thou/mm3 (0.00-0.00); Lymphocytes # (Auto) 1.3 Thou/mm3 (1.0-4.8); Lymphocytes % (Auto) 28 % (10-50); Mean Corpuscular HGB Conc 34.9 g/dl (31.0-37.0); Mean Corpuscular Hemoglobin 39.3 pg (25.0-35.0); Mean Corpuscular Volume 113 fL (80-100); Monocytes # (Auto) 0.5 Thou/mm3 (0.0-0.8); Monocytes % (Auto) 10 % (0-12); Neutrophils # (Auto) 2.7 Thou/mm3 (1.8-7.7); Neutrophils % (Auto) 61 % (37-80); Nucleated Red Blood Cell # 0.00 Thou/mm3 (0.00-0.00); Nucleated Red Blood Cell % 0 /100 WBC (0); Platelet Count 115 Thou/mm3 (140-440); RDW Standard Deviation 54.6 fL (36.4-46.3); Red Blood Count 2.90 Miln/mm3 (4.00-5.20); White Blood Count 4.5 Thou/mm3 (3.6-11.0)
[2024-11-19 10:44] LABS: Anion Gap 11 (7-16); BUN/Creatinine Ratio 13 Ratio (12-20); Blood Urea Nitrogen < 5 mg/dL (9-23); Calcium 8.4 mg/dL (8.3-10.6); Carbon Dioxide 23.5 mMol/L (20.0-31.0); Chloride 102 mMol/L (98-107); Creatinine (Component) 0.4 mg/dL (0.6-1.3); Estimated Creatinine Clearance 134.6 mL/min (>60); Glucose 119 mg/dL (74-106); Magnesium 1.6 mg/dL (1.6-2.6); Osmolality,Calculated 270 (275-295); Phosphorous 2.7 mg/dL (2.4-5.1); Potassium 3.9 mMol/L (3.4-5.1); Sodium 136 mMol/L (136-145); eGFR > 60 See Note
[2024-11-19 12:56] LABS: Clostridium Difficile PCR Negative (Negative)
--- NOTE | 2024-11-19 14:09 | ESPR_ITS ---
<Statement entered by Delma Bryant MD - 11/19/24 22:30> I attest that I was physically present for the evaluation, physical examination, lab and imaging review of the patient with the residents. I discussed the case with the residents and agree with the findings and plans of care as documented above. At bedside today, patient states she is feeling well and denies new complaints. Stool studies so far have been negative, still pending some of the studies. Continues to be on Ciprofloxacin and Flagyl. Hemogobin decreased to 11.4 from 13.5. Was started on Golytely overnight, patient was not clear this morning, started on second gallon. Patient is planned for Colonoscopy today with GI. Delma Bryant MD <Statement entered by Luis Eduardo Liang MD - 11/19/24 15:42> Patient was seen and examined at bedside. I agree on the assessment and plan on this note as documented by resident Елена Lara DO PGY1. 59-year-old female with past medical history as below admitted for colitis will continue IV antibiotics, stool studies have been unremarkable. Patient started on GoLytely prep by gastroenterology today for lower GI bleed workup. Ordered another gallon of GoLytely as patient not clear this morning. Will likely undergo colonoscopy today. Case discussed with attending Dr. Delma Liang MD PGY-2 Documentation for date of: 11/19/24 Subjective Subjective Interval history: No acute overnight events. Patient seen and examined at bedside. Patient reports many bowel movements since last night after starting GoLytely. Reports no hematochezia or melena. Denies nausea and vomiting, fever or palpitations. Continue GoLytely clean. Hemoglobin dropped from 13.5-11.4, no active visible bleeding, continue to monitor. Plan for colonoscopy tonight if clean. Continue Cipro and metronidazole. Exam Vital Signs Temp Pulse Resp BP Pulse Ox O2 Del Method 98.0 F 74 18 150/70 H 98 Room Air 11/19/24 08:00 11/19/24 10:45 11/19/24 10:45 11/19/24 08:00 11/19/24 08:00 11/19/24 08:00 Narrative Exam GENERAL: AOx3, no acute distress, thin, appears older than stated age HEENT: NC/AT, mucous membranes moist, bilateral sclera anicteric CARDIOVASCULAR: regular rate and rhythm, S1/S2 present, no murmurs appreciated PULMONARY: clear to auscultation bilaterally, no rales/rhonchi/wheezes ABDOMINAL: soft, non-distended, no rebound/guarding, bowel sounds present, mild diffuse abdominal tenderness, diffuse guarding to deep palpation greatest at LLQ EXTREMITIES: no peripheral edema SKIN: warm and dry, intact, no rashes, brusing on b/l forearms NEURO: CN II-XII grossly intact, no focal deficits, alert, following commands Objective Labs 11/19/24 09:49 11/19/24 09:49 Labs: Laboratory Results - last 24 hr 11/18/24 11/19/24 11/19/24 12:50 06:38 09:49 WBC 4.5 RBC 2.90 L Hgb 11.4 L D Hct 32.7 L MCV 113 H MCH 39.3 H MCHC 34.9 RDW Std Deviation 54.6 H Plt Count 115 L D Neut % (Auto) 61 Lymph % (Auto) 28 [place] % (Auto) 10 Eos % (Auto) 0 Baso % (Auto) 0 Neut # (Auto) 2.7 Lymph # (Auto) 1.3 [place] # (Auto) 0.5 Eos # (Auto) 0.0 Baso # (Auto) 0.0 Immature Gran # (Auto) 0.02 H Absolute Nucleated RBC 0.00 Immature Gran % 0 Nucleated RBC % 0 Sodium 136 Potassium 3.9 D Chloride 102 Carbon Dioxide 23.5 Anion Gap 11 BUN < 5 L Creatinine 0.4 L Estim Creat Clear Calc 134.6 eGFR > 60 BUN/Creatinine Ratio 13 Glucose 119 H Calculated Osmolality 270 L Calcium 8.4 Phosphorus 2.7 Magnesium 1.6 Stool Campylobacter PCR Negative Stl C. diff Tox B Gene Negative Stl E.coli Shiga Tox PCR Negative Stool Salmonella PCR Negative Stool Shigella PCR Negative Quality Measures Quality Measures VTE prophylaxis Assessment & Plan Assessment Current Active Medications: Generic Name Dose Route Start Last Admin Trade Name Freq PRN Reason Stop Dose Admin Acetaminophen 650 mg 11/17/24 21:14 Acetaminophen 325 Mg Tablet PO 12/17/24 21:13 Q6H PRN Fever >100.4 or pain 1-3 Hydrocodone Bitart/Acetaminophen 1 tab 11/17/24 21:14 11/19/24 07:16 Hydrocodone/Apap 5/325 Tablet PO 11/22/24 21:13 1 tab Q4HR PRN Administration PAIN SCALE 4-6 (Moderate Folic Acid 1 mg 11/18/24 09:00 11/19/24 08:40 Folic Acid 1 Mg Tablet PO 12/18/24 08:59 1 mg QDAY RODERICK Administration Metronidazole 500 mg in 100 mls @ 200 mls/hr 11/18/24 09:50 11/19/24 13:12 Flagyl 500 Mg Iv IV 11/25/24 09:49 200 mls/hr Q8HR RODERICK Administration Ciprofloxacin/Dextrose 400 mg in 200 mls @ 200 mls/hr 11/18/24 09:50 11/19/24 08:41 Cipro Ivpb IV 11/25/24 09:49 200 mls/hr Q12HR RODERICK Administration Ondansetron HCl 4 mg 11/17/24 21:14 11/19/24 07:21 Ondansetron Inj 2 Mg/Ml Inj 2 Ml IVP 12/17/24 21:13 4 mg Q6H PRN Administration NAUSEA OR VOMITING Protocol Pantoprazole Sodium 40 mg 11/18/24 09:00 11/19/24 08:40 Pantoprazole Inj 40 Mg Vial IVP 12/18/24 08:59 40 mg QDAY RODERICK Administration Plan Cindy Mantilla is a 59F pmhx significant for polyps, diverticulosis, hemorrhoids, presented to [facility] ED on 11/17 for a few days of hematochezia and abdominal pain, admitted for diffuse colitis and c/f for GIB. #Abdominal pain #Diffuse colitis #c/f for GIB, upper vs lower #Hematochezia States had bloody bowel movements from 11/09-11/13 and increasing lower abdominal pain prompting ED visit. Hgb 15.3 on admission. Reports melena in 2020 with colonoscopy and repeat colonoscopy in 2021 with multiple polyps removed however has not followed up since. Ddx: infectious colitis (including C. diff), IBD, diverticular bleed, hemorrhoids, neoplasm. 12/2021 colonoscopy: Numerous polyps throughout colon that were removed and retrieved, large internal/external hemorrhoids, moderate diffuse diverticulosis, showing early hyperplastic polyps, tubular adenoma, negative for high-grade dysplasia, hyperplastic polyps s/p levofloxacin (11/17) Stool studies: WBC, campylobacter, C-diff toxin, shiga toxin, salmonella, shigella all neg Plan: - GI consulted, recs appreciated: plan for colonoscopy after stool studies result, Golytely started last night, CLD - F/u stool studies giardia, ANCA, BCx - Ciprofloxacin (11/18- and metronidazole (11/17- - Pain regimen: Tylenol and [place] 5 - CTM abdominal pain - CTM CBC #Macrocytosis Hgb on admission 15.3 downtrended to 13.5. MCV 113->115. Folate low 3.7 and B12 wnl 235. s/p folate 1 mg IVP Plan: - Folate 1 mg PO QD - CTM CBC - Recommend outpatient follow up for further workup and monitor #Nicotine dependence Reports smoking 1 pack per day for the past 15-20 years Plan: - Nicotine patch 21 mg QD - Recommend smoking cessation #Electrolyte abnormalities #Hypokalemia #Hypomagnesemia, resolved Admission Mg 1.6. Plan: - Replete and recheck as needed Hospital management: Lines: PIV Diet: Regular Bowel: hold iso GIB GI prophylaxis: IV pantoprazole 40 mg QD DVT prophylaxis: SCDs, hold blood thinners iso GIB Disposition: med tele for GIB workup CODE STATUS: DNR Plan of care discussed with attending Dr. Bryant, and PGY-2 Dr. Liang. Елена Lara, DO PGY-1 Internal Medicine
[2024-11-19] MEDS: NA SU/NAHCO3/KC/PEG (Golytely) 4,000 ML BTL 4000 ML PO (14:27)
--- NOTE | 2024-11-19 14:52 | PC.SS ---
Rounding: Pending Colonoscopy, DC plan home
[2024-11-19 17:45] LABS: Campylobacter PCR Negative (Negative); Salmonella Species PCR Negative (Negative); Shiga Toxin PCR Negative (Negative); Shigella Species PCR Negative (Negative)
--- NOTE | 2024-11-19 19:56 | SUR.PHASEI ---
Pt. arrived to recovery via gurney, eyes closed, responds to verbal commands, VSS, no c/o pain or nausea at this time, flatulence present, report received from Tesfaye KEYS.
--- NOTE | 2024-11-19 20:30 | SUR.PHASEI ---
Pt. transferred to room 357 via KATH nevarez, no c/o pain or nausea, IV saline flushed and locked, Natali KEYS assumed care of pt.
[2024-11-20] VITALS: BP 128/81; PULSE 83; RESP 14; TEMP 36; O2SAT 98
[2024-11-20 04:00] VITALS: BP 103/60; PULSE 75; RESP 17; TEMP 36.3; O2SAT 96
[2024-11-20] MEDS: metroNIDAZOLE/NS 500 MG IVPB 500 MG/100 ML BAG 200 MG IV (05:44)
[2024-11-20 05:58] LABS: Basophils # (Auto) 0.0 Thou/mm3 (0.0-0.2); Basophils % (Auto) 0 % (0-2.5); Eosinophils # (Auto) 0.0 Thou/mm3 (0.0-0.5); Eosinophils % (Auto) 1 % (0-10); Hematocrit 34.5 % (36.0-46.0); Hemoglobin 12.2 g/dL (12.0-16.0); Immature Granulocytes Auto 0.04 Thou/mm3 (0.00-0.00); Lymphocytes # (Auto) 1.7 Thou/mm3 (1.0-4.8); Lymphocytes % (Auto) 21 % (10-50); Mean Corpuscular HGB Conc 35.4 g/dl (31.0-37.0); Mean Corpuscular Hemoglobin 40.0 pg (25.0-35.0); Mean Corpuscular Volume 113 fL (80-100); Monocytes # (Auto) 0.6 Thou/mm3 (0.0-0.8); Monocytes % (Auto) 7 % (0-12); Neutrophils # (Auto) 5.8 Thou/mm3 (1.8-7.7); Neutrophils % (Auto) 70 % (37-80); Nucleated Red Blood Cell # 0.00 Thou/mm3 (0.00-0.00); Nucleated Red Blood Cell % 0 /100 WBC (0); Platelet Count 155 Thou/mm3 (140-440); RDW Standard Deviation 54.5 fL (36.4-46.3); Red Blood Count 3.05 Miln/mm3 (4.00-5.20); White Blood Count 8.3 Thou/mm3 (3.6-11.0)
[2024-11-20 06:23] LABS: Anion Gap 10 (7-16); BUN/Creatinine Ratio 13 Ratio (12-20); Blood Urea Nitrogen < 5 mg/dL (9-23); Calcium 8.5 mg/dL (8.3-10.6); Carbon Dioxide 22.4 mMol/L (20.0-31.0); Chloride 103 mMol/L (98-107); Creatinine (Component) 0.4 mg/dL (0.6-1.3); Estimated Creatinine Clearance 134.6 mL/min (>60); Glucose 74 mg/dL (74-106); Magnesium 1.7 mg/dL (1.6-2.6); Osmolality,Calculated 266 (275-295); Phosphorous 3.9 mg/dL (2.4-5.1); Potassium 3.7 mMol/L (3.4-5.1); Sodium 135 mMol/L (136-145); eGFR > 60 See Note
[2024-11-20 08:00] VITALS: BP 131/85; PULSE 87; RESP 20; TEMP 36.3; O2SAT 97
[2024-11-20] MEDS: CIPROFLOXACIN/D5w 400 MG IVPB 400 MG/200 ML BAG 200 MG IV (08:04)
[2024-11-20] MEDS: FOLIC ACID 1 MG TABLET PO (08:04)
[2024-11-20] MEDS: HYDROcodone/APAP 5/325 TABLET 1 TAB PO ×2 (08:19→12:46)
[2024-11-20 12:00] VITALS: BP 123/74; PULSE 85; RESP 18; TEMP 36.9; O2SAT 97
--- NOTE | 2024-11-20 17:07 | ESDS_ITS ---
<Statement entered by Joan Faust DO - 11/21/24 08:57> I, Joan Faust DO, attest that I was physically present for the [place] portions of the service and evaluated the patient with the resident and I reviewed and discussed the case with the resident and agree with the resident's findings and plans of care as documented above <Statement entered by Luis Eduardo Liang MD - 11/20/24 17:29> Patient was seen and examined by me personally. I have reviewed the below documentation by the team resident and agree with its findings. Discharge plan was discussed with the attending, Dr. Joan Faust DO. 59-year-old female with past medical history as below admitted for hematochezia abdominal pain found to have colitis was started on prophylactic antibiotics. Underwent colonoscopy which showed internal hemorrhoids status post banding, ulcers noted on colonoscopy status post biopsy by gastroenterology, there is some suspicion of mesenteric ischemia considering patient's extensive smoking history as well per GI. Was found to have multiple angiodysplastic lesions status post argon plasma coagulation by gastroenterology. GI recommends discharging patient on aspirin 81 mg daily and close follow-up outpatient with cardiology, recommends extensive vascular workup. Smoking cessation education provided to patient at bedside, will discharge patient on Protonix. Patient to follow-up with gastroenterology in 3 weeks outpatient for biopsy results. Antibiotics discontinued, patient stable for discharge responded well to hospital treatment. Luis Eduardo Liang MD Internal Medicine, PGY-2 Planned Discharge Date 11/20/24 DS: Providers Provider Date of admission: 11/17/24 21:12 Primary care physician: Sakina Seth PA-C Admitting Provider: Jeffrey Magallon MD Attending Provider on Admission: Joan Faust DO Consults: 11/17/24 20:16 Consult to Gastroenterology Stat Comment: Consulting Provider: Lcua Beck Attending Provider on DC: Jeffrey Magallon MD Discharging Provider: Jeffrey Magallon MD Anticipated date of discharge: 11/20/24 DS: Diagnosis Problem List Completed Was Problem List Reviewed/Reconciled?: Yes Hospital Course Hospital Course Hospital course: Summary Cindy Mantilla is a 59F pmhx significant for polyps, diverticulosis, hemorrhoids, presented to [facility] ED on 11/17 for a few days of hematochezia and abdominal pain, admitted for diffuse colitis and concern for GIB. In the ED patient was hemodynamically stable. CT abdomen/pelvis showed diffuse colitis. GI consulted for further workup. Started patient on ciprofloxacin and Flagyl prophylactically. Blood culture show no growth after 24 hours. Patient was started on GoLytely prep. Colonoscopy showed internal hemorrhoids banded by GI, colonic angiodysplastic lesions s/p organ plasma coagulation, mucosal ulceration in the sigmoid and descending colon which was biopsied. 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 Recommended low fiber diet.Throughout the hospital course patient other problems were managed and her condition improved remarkably with progression of hospital course. Further plan to discharge the patient home since she is hemodynamically stable to be discharged home to self care with the following instructions. Discharge recommendation: - Take aspirin 81mg daily, obtain referral for Cardiology and follow up outpatient. - Continue pantoprazole daily and follow up with Gastroenterology in 2 weeks, follow up with biopsy results. - Obtain Carotid Doppler US, SALLY/Peripheral Arterial Doppler and Mesenteric Arteriogram Outpatient. - Stop smoking, use nicotine gum as needed for cravings. - Low Fiber Diet as recommended by GI as below - Follow up with Primary Care Provider in 1-2 weeks - Return to ED if symptoms worsen Hospital Diagnoses: #Lower GIB #Colonic angiodysplastic lesions s/p organ plasma coagulation #Ulcerations in sigmoid and descending colon s/p biopsy #Internal hemorrhoids s/p band #Abdominal pain #Diffuse colitis #Hematochezia #Macrocytosis #Nicotine dependence #Folate deficiency #Electrolyte abnormalities #Hypokalemia #Hypomagnesemia, resolved Patient seen and assessed under supervision of attending physician and discuss with senior resident Dr. Liang PGY-2 Diana Alva MD PGY-1, Internal Medicine Time spent discussing smoking cessation with patient: more than 10 minutes Time Spent with Patient Time attestation: Total time spent providing and/or coordinating discharge services: Time spent: Greater than 30 minutes Exam Vital Signs Temp Pulse Resp BP Pulse Ox O2 Del Method O2 Flow Rate 98.4 F 85 18 123/74 97 Room Air 3 11/20/24 12:00 11/20/24 12:11/20/24 12:11/20/24 12:11/20/24 12:11/20/24 12:11/19/24 19:50 Narrative Exam General: Alert, no acute distress.Conversational and non-toxic appearing. Skin: Warm, dry, brusing on b/l forearms Head: Normocephalic, atraumatic. Eye: Normal conjunctiva, PERRL. Throat: Oral mucosa moist. No obvious lesions in oropharynx. Cardiovascular: Regular rate and rhythm, no murmur, +S1/S2. Respiratory: Lungs are clear to auscultation, respirations unlabored, no crackles, no wheezing. Gastrointestinal: Soft, nontender, non-distended.mild diffuse abdominal tenderness Extremities: No edema, no cyanosis, no clubbing. Neuro: Alert and oriented x3.No focal deficits observed. Conversant, moving all extremities. No overt cerebellar signs/incoordination. Psychiatric: Cooperative, appropriate affect Discharge Plan Plan Patient Disposition: HOME (Self Care) Patient condition on transfer: Stable Care Plan Goals: - Take aspirin 81mg daily, obtain referral for Cardiology and follow up outpatient. - Continue pantoprazole daily and follow up with Gastroenterology in 2 weeks, follow up with biopsy results. - Obtain Carotid DOppler US, SALLY/Peripheral Arterial Doppler and Mesenteric Arteriogram Outpatient. - Stop smoking, use nicotine gum as needed for cravings. - Low Fiber Diet as recommended by GI as below - Follow up with Primary Care Provider in 1-2 weeks - Return to ED if symptoms wosen Prescriptions/Referrals Prescriptions/Med Rec: New folic acid 1 mg Tablet 1 mg PO QDAY 30 Days Qty: 30 0RF aspirin 81 mg capsule 81 mg PO QDAY Qty: 30 0RF nicotine (polacrilex) 4 mg gum 4 mg buccal Q8H PRN (Reason: nicotine cravings) Qty: 40 0RF pantoprazole [Protonix] 40 mg tablet,delayed release (DR/EC) 40 mg PO QDAY Qty: 30 0RF Referrals: Luca Beck MD [Physician] - Sakina Seth PA-C [Primary Care Provider] - Dwayne Bright MD [Physician] - Patient/Caregiver Discharge Instructions Discharge Activity: activity as tolerated Other Discharge Diet Instructions: Foods to Eat -Grains:?White bread, white rice, cream of wheat, plain crackers, and pasta made from refined flours.? -Fruits:?Canned or cooked fruits without skin or seeds, such as bananas, applesauce, and peeled pears.? -Vegetables:?Well-cooked and tender vegetables without skins or seeds, like carrots, green beans, and cooked potatoes.? -Proteins:?Meat, poultry, fish, eggs, and tofu.? -Fats:?Butter, oil, mayonnaise, and salad dressings without seeds.? Foods to Avoid -Grains:?Whole wheat bread, whole-grain pasta, oatmeal, and high-fiber cereals.? -Fruits:?Raw fruits, fruits with skins or seeds (like berries), and dried fruits.? -Vegetables:?Raw vegetables, cruciferous vegetables (broccoli, cauliflower), and vegetables with skins or seeds.? -Legumes:?Beans, lentils, and other pulses.? -Nuts and Seeds:?All nuts and seeds.? Education Materials: Low-Fiber Diet, Lower GI Endoscopy, ED How to Quit Smoking Print Language: Vietnamese Stand Alone Forms: [facility] Award Info., Patient Portal Info Letter Discharge Order Discharge Orders: Discharge (Routine); Ordered 11/20/24 Ordered By: Luis Eduardo Liang Quality Discharge Quality Measures VTE prophylaxis
--- NOTE | 2024-11-20 17:41 | PD.IMPROG ---
Documentation for date of: 11/20/24 Subjective Subjective Interval history: late entry for the note Case discussed with internal medicine team okay to discharge Colonoscopy showed ischemic lightest sigmoid colon and descending colon Angiodysplasia of the right colon requiring argon laser And banding of the internal hemorrhoids Outpatient follow-up Exam Vital Signs Temp Pulse Resp BP Pulse Ox O2 Del Method O2 Flow Rate 98.4 F 85 18 123/74 97 Room Air 3 11/20/24 12:00 11/20/24 12:00 11/20/24 12:00 11/20/24 12:00 11/20/24 12:00 11/20/24 12:00 11/19/24 19:50 Objective Labs 11/20/24 05:25 11/20/24 05:25 Labs: Laboratory Results - last 24 hr 11/19/24 11/20/24 06:38 05:25 WBC 8.3 D RBC 3.05 L Hgb 12.2 Hct 34.5 L MCV 113 H MCH 40.0 H MCHC 35.4 RDW Std Deviation 54.5 H Plt Count 155 D Neut % (Auto) 70 Lymph % (Auto) 21 [place] % (Auto) 7 Eos % (Auto) 1 Baso % (Auto) 0 Neut # (Auto) 5.8 Lymph # (Auto) 1.7 [place] # (Auto) 0.6 Eos # (Auto) 0.0 Baso # (Auto) 0.0 Immature Gran # (Auto) 0.04 H Absolute Nucleated RBC 0.00 Immature Gran % 1 H Nucleated RBC % 0 Sodium 135 L Potassium 3.7 Chloride 103 Carbon Dioxide 22.4 Anion Gap 10 BUN < 5 L Creatinine 0.4 L Estim Creat Clear Calc 134.6 eGFR > 60 BUN/Creatinine Ratio 13 Glucose 74 Calculated Osmolality 266 L Calcium 8.5 Phosphorus 3.9 Magnesium 1.7 Stool Campylobacter PCR Negative Stl E.coli Shiga Tox PCR Negative Stool Salmonella PCR Negative Stool Shigella PCR Negative Impressions Impression: Internal hemorrhoids status post banding of the internal hemorrhoids Ischemic colitis sigmoid and descending colon Angiodysplasias right colon requiring argon laser that is APC laser Okay to discharge to be followed as an outpatient Assessment & Plan A&P Narrative # Rectal bleeding differential diagnosis include infectious enterocolitis versus inflammatory bowel disease or ischemic colitis Plan Stool for C. difficile Culture and sensitivity for stool Gram stain Fecal calprotectin Giardia antigen ANCA antibody CRP If negative Will consider doing a fiberoptic colonoscopy Can give antibiotic coverage prophylactically pending stool culture and sensitivity Thank you very much for the opportunity to participate in the care of this patient Time Spent With Patient Time: Total time spent is greater than 50% in coordination of care (as documented) at patient's floor/unit and/or counseling patient:
[2024-11-24 07:05] LABS: Giardia Result NOT DETECTED
[2024-11-24 07:07] LABS: ANCA Screen NEGATIVE (NEGATIVE); Myeloperoxidase Ab <1.0 AI (<1.0); Proteinase-3 Ab <1.0 AI (<1.0)
[2024-11-30 08:43] LABS: Calprotectin, Stool* 3880 mcg/g
== END 2024-11-20 14:00 | disposition home or self-care (01) | DRG 349 ==
LOC: SERX 20:17 → SERHOLD 21:56 → S3NX 11-18 06:16 → SERHOLD 11-18 06:17
PROVIDERS: Nurse Practitioner Family; Nurse Practitioner Primary Care; Specialist; Admitting Provider Internal Medicine; Emergency Provider Emergency Medicine; PCP Physician Assistant; Visit Provider Internal Medicine
PROC: 0DJD8ZZ Inspection of Lower Intestinal Tract, Via Natural or Artificial Opening Endoscopic (ICD-10-PCS; CPT 45378; principal; 2024-11-19 19:30)
DX: K55.21 Angiodysplasia of colon with hemorrhage (principal); K52.9 Noninfective gastroenteritis and colitis, unspecified; E78.00 Pure hypercholesterolemia, unspecified; Z86.0100 Personal history of colon polyps, unspecified; F17.210 Nicotine dependence, cigarettes, uncomplicated; E83.42 Hypomagnesemia; D75.89 Other specified diseases of blood and blood-forming organs; R42 Dizziness and giddiness; Z66 Do not resuscitate; E53.8 Deficiency of other specified B group vitamins; E87.6 Hypokalemia; K64.4 Residual hemorrhoidal skin tags; K64.8 Other hemorrhoids; Z79.82 Long term (current) use of aspirin
CPT/HCPCS: 36415; 74177; 80048; 80053; 80061; 81001; 82607; 82746; 83735; 83993; 84100; 84443; 85025; 85610; 85652; 85730; 86021; 86036; 86140; 86850; 86900; 86901; 87015; 87040; 87045; 87046; 87205; 87329; 87493; 87899; 96365; 96366; 96375; 99284; A4649; J0744; J1200; J1956; J2250; J2270; J2405; J2470; J3010; J3475; J3490; J7030; Q9967; A9270; J1836

== ENCOUNTER → 2024-11-26 | Outpatient (CLI) | payer BC, SELFPAY ==
[2024-11-26 10:19] LABS: Collection Type, Urine Clean Catch
[2024-11-26 10:54] LABS: Basophils # (Auto) 0.0 Thou/mm3 (0.0-0.2); Basophils % (Auto) 1 % (0-2.5); Eosinophils # (Auto) 0.0 Thou/mm3 (0.0-0.5); Eosinophils % (Auto) 0 % (0-10); Hematocrit 41.4 % (36.0-46.0); Hemoglobin 14.4 g/dL (12.0-16.0); Immature Granulocytes Auto 0.02 Thou/mm3 (0.00-0.00); Lymphocytes # (Auto) 1.6 Thou/mm3 (1.0-4.8); Lymphocytes % (Auto) 27 % (10-50); Mean Corpuscular HGB Conc 34.8 g/dl (31.0-37.0); Mean Corpuscular Hemoglobin 39.5 pg (25.0-35.0); Mean Corpuscular Volume 113 fL (80-100); Monocytes # (Auto) 0.6 Thou/mm3 (0.0-0.8); Monocytes % (Auto) 10 % (0-12); Neutrophils # (Auto) 3.7 Thou/mm3 (1.8-7.7); Neutrophils % (Auto) 62 % (37-80); Nucleated Red Blood Cell # 0.00 Thou/mm3 (0.00-0.00); Nucleated Red Blood Cell % 0 /100 WBC (0); Platelet Count 367 Thou/mm3 (140-440); RDW Standard Deviation 57.7 fL (36.4-46.3); Red Blood Count 3.65 Miln/mm3 (4.00-5.20); White Blood Count 5.9 Thou/mm3 (3.6-11.0)
[2024-11-26 11:01] LABS: Bacteria,Urine Rare; Bilirubin,Urine Negative (Negative); Blood,Urine Negative (Negative); Clarity,Urine Turbid (Clear/Hazy); Color,Urine Yellow (Lt Yel-Yel); Culture Indicated,Urine Not Indicated; Glucose, Urine Negative (Negative); Hyaline Casts,Urine < 1 /hpf (0-1); Ketones,Urine Trace (Negative); Leukocyte Esterase,Urine Positive (Negative); Nitrite,Urine Negative (Negative); PH,Urine 7.0 (5.0-7.0); Protein,Urine Trace (Neg - Trace); RBC,Urine 4 /hpf (0-3); Specific Gravity,Urine 1.021 (1.001-1.035); Squamous Epithelial Cell,Urine 12 /hpf (0-5); Urobilinogen,Urine 2.0 mg/dL (0.0-1.0); WBC,Urine 5 /hpf (0-5)
[2024-11-26 11:10] LABS: Vitamin B12 334 pg/mL (211-911); Vitamin D 25 Hydroxy Total 16.2 ng/mL (7.3-40.2)
[2024-11-26 11:18] LABS: Alanine Aminotransferase 8 U/L (10-49); Albumin, Serum 3.7 gm/dL (3.4-4.8); Albumin/Globulin Ratio 1.9 (1.2-2.2); Alkaline Phosphatase 83 U/L (46-116); Anion Gap 12 (7-16); Aspartate Amino Transferase 24 U/L (0-34); BUN/Creatinine Ratio 8 Ratio (12-20); Bilirubin,Total 0.3 mg/dL (0.3-1.2); Blood Urea Nitrogen < 5 mg/dL (9-23); Calcium 9.6 mg/dL (8.3-10.6); Calcium (Corrected) 9.8 mg/dL (8.5-10.1); Carbon Dioxide 26.4 mMol/L (20.0-31.0); Cardiac Risk Estimate 3.3 RATIO (3.7-5.6); Chloride 103 mMol/L (98-107); Cholesterol 179 mg/dL (132-200); Creatinine (Component) 0.6 mg/dL (0.6-1.3); Globulin 2.0 gm/dL (2.3-3.5); Glucose 84 mg/dL (74-106); HDL Cholesterol 54 mg/dL (40-60); LDL Cholesterol,Calculated 103 mg/dL (0-130); Osmolality,Calculated 277 (275-295); Potassium 4.1 mMol/L (3.4-5.1); Sodium 141 mMol/L (136-145); Thyroid Stimulating Hormone 1.47 uIU/mL (0.55-4.78); Total Protein 5.7 gm/dL (5.7-8.2); Triglycerides 109 mg/dL (30-150); eGFR > 60 See Note
== END | disposition home or self-care (01) ==
LOC: COPL 08:45
PROVIDERS: PCP Family Medicine; Referring Provider Physician Assistant; Visit Provider Physician Assistant
DX: E78.5 Hyperlipidemia, unspecified (principal); E55.9 Vitamin D deficiency, unspecified
CPT/HCPCS: 36415; 80053; 80061; 81001; 82306; 82607; 84443; 85025

== ENCOUNTER → 2025-02-15 | Outpatient (CLI) | payer BC, SELFPAY ==
--- NOTE | 2025-02-15 09:00 | XR_ITS ---
Examination: MRI cervical spine without intravenous contrast Date and time of exam: February 15, 2025, 1031 hours INDICATIONS: Neck pain beginning November 19, 2024 TECHNIQUE: Multiple axial sagittal MR images cervical spine FINDINGS: Satisfactory line mid cervical vertebral bodies No cervical fracture. Intact odontoid Diffuse cervical disc desiccation. Moderate degenerative disc disease C5-C6, C6-C7 C2-C3 no disc protrusion C3-C4 moderate bilateral neuroforaminal stenosis C4-C5 moderate bilateral neuroforaminal stenosis C5-C6 moderate overall spinal stenosis, 4 mm central subarticular osteophyte disc complex, indenting the ventral margin cervical cord, advanced bilateral neuroforaminal stenosis C6-C7 4 mm central right paracentral osteophyte disc complex, advanced bilateral neuroforaminal stenosis C7-T1 no disc protrusion Impression: Significant cervical spinal stenosis C5-C6, C6-C7
== END | disposition home or self-care (01) ==
PROVIDERS: PCP Physician Assistant; Referring Provider Physician Assistant; Visit Provider Physician Assistant
DX: M48.02 Spinal stenosis, cervical region (principal)
CPT/HCPCS: 72141

== ENCOUNTER → 2025-03-02 | Outpatient (CLI) | payer BC, SELFPAY ==
--- NOTE | 2025-03-02 17:00 | XR_ITS ---
Examination: MRI thoracic spine without contrast. Date and time of exam: March 02, 2025, 1743 hours INDICATIONS: Mid back pain constipation months Technique: Multiple sagittal and axial images of the thoracic spine have been obtained. T1 weighted localizer, sagittal T2 weighted images, TR 30-50, TE 148, T1 weighted sagittal images, TR 650, TE 14, T2-weighted transverse images, TR 6770, TE 142 Findings: Adequate alignment thoracic vertebral bodies on the lateral view Moderate to advanced degenerative disc disease C5-C6 Mild to moderate diffuse thoracic disc narrowing Diffuse thoracic disc desiccation No focal thoracic disc protrusion impinging upon the thoracic cord No localized enlargement thoracic cord Impression: Mild to moderate diffuse thoracic degenerative disc disease No focal thoracic disc protrusion, no impingement upon the thoracic cord
--- NOTE | 2025-03-02 17:30 | XR_ITS ---
Examination: MRI lumbar spine without contrast Date and time of exam: March 02, 2025, 1743 hours INDICATIONS: Low back pain months Technique: Multiple MRI axial and sagittal sections lumbar spine. Sagittal T2-weighted images, TR 3500, TE 118 T1 weighted transverse sections, TR 688 T8.5, T2-weighted sagittal sections T1 weighted sagittal sections TR 621, TE 30 T2 axial sections, TR 4, 190, TE 84. Findings: Satisfactory alignment lumbar vertebral bodies No lumbar fracture Diffuse lumbar disc desiccation No spondylolisthesis Normal marrow signal lumbar vertebral bodies L5-S1 2 mm central lumbar disc bulge L4-L5 2 mm central lumbar disc bulge More cephalad levels unremarkable IMPRESSION: No lumbar fracture Satisfactory alignment lumbar vertebral bodies Minimal lumbar disc bulges L4-L5, L5-S1
== END | disposition home or self-care (01) ==
PROVIDERS: PCP Physician Assistant; Referring Provider Physician Assistant; Visit Provider Physician Assistant
DX: M51.34 Other intervertebral disc degeneration, thoracic region (principal); M51.370 Other intervertebral disc degeneration, lumbosacral region with discogenic back pain only; M51.360 Other intervertebral disc degeneration, lumbar region with discogenic back pain only
CPT/HCPCS: 72146; 72148